=== PATIENT | female | born 1990 | race Caucasian/White ===

== ENCOUNTER → 2016-08-10 10:28 | Outpatient (CLI) | payer MEDICAID | END | disposition home or self-care (01) | LOC: D.US 10:28 | DX: R10.9 Unspecified abdominal pain (principal) ==

== ENCOUNTER 2016-09-29 19:30 | Emergency (ER) | payer MEDICAID | END 2016-09-30 00:28 | disposition home or self-care (01) | LOC: D.ER 19:30 | DX: O26.891 Other specified pregnancy related conditions, first trimester (principal); Z3A.00 Weeks of gestation of pregnancy not specified; K64.4 Residual hemorrhoidal skin tags; B37.3 Candidiasis of vulva and vagina; J45.909 Unspecified asthma, uncomplicated ==

== ENCOUNTER 2017-12-03 18:47 | Emergency (ER) | payer MEDICAID | END 2017-12-03 20:12 | disposition home or self-care (01) | LOC: D.ER 18:47 | DX: T63.461A Toxic effect of venom of wasps, accidental (unintentional), initial encounter (principal); Y92.9 Unspecified place or not applicable; L03.012 Cellulitis of left finger ==

== ENCOUNTER → 2018-05-05 10:23 | Outpatient (CLI) | payer MEDICAID | END | disposition home or self-care (01) | LOC: D.CT 10:23 | DX: J32.8 Other chronic sinusitis (principal) ==

== ENCOUNTER 2018-08-09 07:28 | Day surgery (SDC) | payer MEDICAID ==
[~2018-08-09] VITALS: Ht 162.6 cm; Wt 136.4 kg
[2018-08-09 07:47] LABS: HEMATOCRIT 37.9 % (36.0-48.0); HEMOGLOBIN 12.5 g/dL (12-16); MCV 78.8 fL (80.0-100.0); MEAN PLATELET VOLUME 9.3 fL (7.4-10.4); RBC 4.81 10x6/uL (4.00-5.40); WBC 6.2 10x3/uL (4.8-10.8)
[2018-08-09 08:13] LABS: HCG SERUM NEGATIVE (NEGATIVE)
[2018-08-09] MEDS ORDERED: CELEXA20 MG PO (08:37)
[2018-08-09] MEDS ORDERED: ZANTAC300 MG PO (08:37)
[2018-08-09] MEDS ORDERED: TOPAMAX50 MG PO (08:38)
[2018-08-09] MEDS ORDERED: BREO ELLIPTA 11 EACH INH (08:39)
[2018-08-09] MEDS ORDERED: PROAIR (08:40)
[2018-08-09 08:44] VITALS: BP 118/71; Ht 162.6 cm; Wt 136.4 kg
--- NOTE | 2018-08-09 13:50 | OP ---
PATIENT NAME: JOSIAH MONTES MEDICAL RECORD: [id number] :88 LOCATION:[facility] ADMISSION DATE: SURGEON: STEWART LEWIS DO DATE OF OPERATION: 08/09/2018 PROCEDURE: Colonoscopy with polypectomy. INDICATIONS FOR PROCEDURE: Family history positive for colon cancer in the patient's mother diagnosed at age 45 as well as periumbilical abdominal pain. SCOPE: Olympus video pediatric colonoscope. MEDICATIONS: Propofol 400 mg IV per anesthesia. WITHDRAWAL TIME: 7 minutes. ESTIMATED BLOOD LOSS: Minimal. COMPLICATIONS: None. FINDINGS AND DESCRIPTION OF PROCEDURE: Informed consent was given. The patient was made comfortable with the above medication. After reaching an adequate level of sedation by slow IV push, the patient was placed on her left side. A digital rectal examination was performed and it was normal. The endoscope was then advanced under direct visualization through the rectum to the cecum, confirmed by the presence of the appendiceal orifice and ileocecal valve. The endoscope was slowly withdrawn and the mucosa was carefully examined. There were 2 polyps located on today's examination. The first was in the ascending colon. It was benign appearing sessile polyp, which measured approximately 3-4 mm in diameter. It was removed using hot forceps in one piece and completely retrieved. A second polyp was a benign appearing sessile polyp located in the transverse colon, that was measured approximately 4-5 mm in diameter. It was removed using hot forceps and completely retrieved. Retroflexion was performed in the rectum with visualization of a normal rectal wall. There were no other findings on this examination. The endoscope was withdrawn from the patient. The patient tolerated the procedure well and there were no complications. IMPRESSION: 1. Two polyps as described above, removed using hot forceps. 2. Otherwise, normal colonoscopy. PLAN AND RECOMMENDATIONS: 1. Discharge home when recovery parameters are met. 2. Follow up biopsy specimen results. 3. Continue current diet. 4. Continue current medications. 5. Recall colonoscopy in 3-5 years based on the polyps that were removed today as well as the patient's strong family history of colon cancer. TRANSINT:[id number] Voice Confirmation ID: [id number] DOCUMENT ID: [id number] OPERATIVE REPORT [id number] JOSIAH MONTES STEWART LEWIS DO at 1350 CC: [id number] DICTATION DATE: 08/09/18 1016 STONE SPREADER OPERATOR: 08/09/18 1059 [facility] 08/09/18 [place] [id number] [place] [id number]
== END 2018-08-09 11:05 | disposition home or self-care (01) ==
LOC: D.OPS 07:28
PROVIDERS: Anesthesiology
DX: K63.5 Polyp of colon (principal); D12.2 Benign neoplasm of ascending colon; Z80.0 Family history of malignant neoplasm of digestive organs; J45.909 Unspecified asthma, uncomplicated; Z87.891 Personal history of nicotine dependence; K21.9 Gastro-esophageal reflux disease without esophagitis; E66.01 Morbid (severe) obesity due to excess calories; Z68.43 Body mass index [BMI] 50.0-59.9, adult; Z88.5 Allergy status to narcotic agent; Z79.899 Other long term (current) drug therapy; Z01.812 Encounter for preprocedural laboratory examination

== ENCOUNTER 2018-08-28 09:37 | Day surgery (SDC) | payer MEDICAID ==
[~2018-08-28] VITALS: Ht 162.6 cm; Wt 135.5 kg
[~2018-08-28 09:37] MED LIST: BREO ELLIPTA 11 EACH INH; CELEXA20 MG PO; PROAIR; TOPAMAX50 MG PO; ZANTAC300 MG PO
[2018-08-28 10:24] LABS: BASOPHILS 0.2 % (0-2); EOSINOPHILS 3.2 % (0-7); HCG SERUM NEGATIVE (NEGATIVE); HEMATOCRIT 36.6 % (36.0-48.0); HEMOGLOBIN 12.1 g/dL (12-16); IMMATURE GRANULOCYTES 0.2 % (0-5); LYMPHOCYTES 32.7 % (15-50); MCH 25.8 pg (26.0-34.0); MCHC 33.1 g/dL (31.0-37.0); MEAN PLATELET VOLUME 9.8 fL (7.4-10.4); MONOCYTES 5.8 % (2-11); NEUTROPHILS 57.9 % (40-80); PLATELET COUNT 245 10x3/uL (130-400); RBC 4.69 10x6/uL (4.00-5.40); RDW 13.5 % (11.5-14.5); WBC 6.2 10x3/uL (4.8-10.8)
[2018-08-28 11:18] VITALS: BP 115/66; Ht 162.6 cm; Wt 135.5 kg
[2018-08-28 11:43] LABS: HCG URINE NEGATIVE (NEGATIVE)
--- NOTE | 2018-08-28 13:38 | NUR ---
1230-RECD TO ROOM 1245-DR LEWIS IN TO REPORT FINDINGS 1300-IV D/C AND DRESSED 1315-DISCHARGE INSTRUCTIONS REVIEWED AND D/C VIA WHEELCHAIR WITH FAMILY.
--- NOTE | 2018-08-30 09:41 | OP ---
PATIENT NAME: JOSIAH MONTES MEDICAL RECORD: [id number] :88 LOCATION:[facility] ADMISSION DATE: SURGEON: STEWART LEWIS DO DATE OF OPERATION: 08/28/2018 PROCEDURE: EGD with biopsies. INDICATIONS FOR PROCEDURE: Heartburn, nausea, periumbilical abdominal pain, and intermittent melena. SCOPE: Olympus video gastroscope. MEDICATIONS: Propofol 250 mg IV per anesthesia. ESTIMATED BLOOD LOSS: Minimal. COMPLICATIONS: None. FINDINGS: Informed consent was given. The patient was made comfortable with the above medication. After reaching an adequate level of sedation by slow IV push, the patient was placed on her left side. The endoscope was advanced under direct visualization through the mouth to the second and third portions of the duodenum. The upper, middle, and lower thirds of the esophagus appeared normal. Random cold forceps biopsies were taken from the midesophagus to rule out the presence of eosinophils. At the GE junction, there were mild changes consistent with LA class C, reflux-induced esophagitis. There were no ulcers or erosions present. The endoscope was advanced beyond the GE junction into the stomach and retroflexed to view the cardia, which appeared normal. The mucosa of the stomach appeared normal in its entirety. Random cold forceps biopsies were taken to submit for histopathology and to rule out the presence of H. pylori. The endoscope was advanced beyond the pylorus into the duodenum, which appeared normal down to the third portion. The endoscope was withdrawn from the patient. The patient tolerated the procedure well and there were no complications. IMPRESSION: 1. LA class C, reflux-induced esophagitis. 2. Otherwise, normal upper endoscopy with biopsies taken from midesophagus and stomach. PLAN AND RECOMMENDATIONS: 1. Discharge home when recovery parameters are met. 2. Followup biopsy specimen results. 3. GERD diet and reflux precautions. 4. Trial of omeprazole 40 mg daily times 60 days. 5. Gastric emptying scan and right upper quadrant ultrasound regarding nausea and abdominal pain. 6. Consider PIPIDA scan pending results of above studies. 7. Follow up in GI clinic in approximately 3-4 weeks. TRANSINT:[id number] Voice Confirmation ID: [id number] DOCUMENT ID: [id number] OPERATIVE REPORT [id number] JOSIAH MONTES STEWART LEWIS DO at 0941 CC: [id number] DICTATION DATE: 08/28/18 1221 MATCHER: 08/28/18 1459 [facility] 08/28/18 [facility] [address] [place] [address]
== END 2018-08-28 13:15 | disposition home or self-care (01) ==
LOC: D.OPS 09:37
PROVIDERS: Internal Medicine Gastroenterology
DX: K21.0 Gastro-esophageal reflux disease with esophagitis (principal); K29.50 Unspecified chronic gastritis without bleeding; Z01.812 Encounter for preprocedural laboratory examination

== ENCOUNTER → 2018-09-01 10:18 | Outpatient (CLI) | payer MEDICAID | END | disposition home or self-care (01) | LOC: D.US 10:18 → D.NM 11:30 | DX: R11.0 Nausea (principal); R10.9 Unspecified abdominal pain ==

== ENCOUNTER → 2018-09-20 09:08 | Outpatient (CLI) | payer MEDICAID ==
[2018-09-20 09:47] LABS: ALBUMIN 3.7 g/dL (3.4-5.0); BILIRUBIN - DIRECT 0.13 mg/dL (0.00-0.30); BILIRUBIN - INDIRECT 0.41 mg/dL (0.00-1.00); BILIRUBIN - TOTAL 0.54 mg/dL (0.2-1.3)
== END | disposition home or self-care (01) ==
LOC: D.LAB 08:00 → D.NM 09:30
PROVIDERS: ATTEND Internal Medicine Gastroenterology
DX: R11.0 Nausea (principal)

== ENCOUNTER 2019-12-10 05:38 | Day surgery (SDC) | payer MEDICAID ==
[2019-12-06 11:16] LABS: BASOPHILS 0.2 % (0-2); EOSINOPHILS 3.3 % (0-7); HEMATOCRIT 38.9 % (36.0-48.0); HEMOGLOBIN 12.3 g/dL (12-16); IMMATURE GRANULOCYTES 0.1 % (0-5); LYMPHOCYTES 33.6 % (15-50); MCH 25.6 pg (26.0-34.0); MCHC 31.6 g/dL (31.0-37.0); MCV 80.9 fL (80.0-100.0); MEAN PLATELET VOLUME 9.3 fL (7.4-10.4); MONOCYTES 5.5 % (2-11); NEUTROPHILS 57.3 % (40-80); PLATELET COUNT 281 10x3/uL (130-400); RBC 4.81 10x6/uL (4.00-5.40); RDW 13.7 % (11.5-14.5); WBC 8.1 10x3/uL (4.8-10.8)
[2019-12-06 11:28] LABS: CALC OSMOLALITY 274 mosm/kg (275-300); CALCIUM 8.8 mg/dL (8.5-10.1); CARBON DIOXIDE 28.6 mmol/L (21.0-32.0); CHLORIDE - SERUM 103 mmol/L (98-107); CREATININE - SERUM 0.8 mg/dL (0.6-1.3); GLUCOSE 90 mg/dL (74-106); POTASSIUM - SERUM 3.9 mmol/L (3.5-5.1); SODIUM 138 mmol/L (136-145); UREA NITROGEN 9 mg/dL (7-18); eGFR NON AFRICAN AMERICAN 89 mL/min (90-120)
[2019-12-06 11:30] LABS: UDS - AMPHET NEGATIVE QUAL (NEGATIVE); UDS - BARB NEGATIVE QUAL (NEGATIVE); UDS - BENZO NEGATIVE QUAL (NEGATIVE); UDS - COCAINE NEGATIVE QUAL (NEGATIVE); UDS - OPIATE NEGATIVE QUAL (NEGATIVE); UDS - PCP NEGATIVE QUAL (NEGATIVE); UDS - THC POSITIVE QUAL (NEGATIVE)
[~2019-12-10] VITALS: Ht 162.6 cm; Wt 131.8 kg
--- NOTE | ~2019-12-10 | OP ---
PATIENT NAME: JOSIAH MONTES MEDICAL RECORD: [id number] :88 LOCATION:D[facility] ADMISSION DATE: SURGEON: BORA GUERRIER MD DATE OF OPERATION: 12/10/2019 PREOPERATIVE DIAGNOSES: 1. Abnormal uterine bleeding. 2. Dysmenorrhea. 3. Implantable contraception. POSTOPERATIVE DIAGNOSES: 1. Abnormal uterine bleeding. 2. Dysmenorrhea. 3. Implantable contraception. PROCEDURE PERFORMED: 1. Diagnostic laparoscopy. 2. Total laparoscopic hysterectomy. 3. Bilateral salpingectomy. 4. Left oophorectomy. 5. Removal of Nexplanon device. SURGEON: Bora Guerrier MD ANESTHESIOLOGIST: Dr. Mir. Francisco CR. ANESTHETIC: General. FINDINGS: Uterus, tubes, and ovaries appear unremarkable. The abdominal anatomy that was visualized is also unremarkable. The implantable contraception device is found on the medial aspect of the left arm superficial 6-7 cm above the olecranon. SPECIMENS REMOVED: 1. Uterus. 2. Bilateral tubes. 3. Left ovary. 4. Nexplanon device. SPECIMEN DISPOSITION: Pathology. ESTIMATED BLOOD LOSS: Minimal. FLUIDS: 1500 cc lactated Ringer's. URINE OUTPUT: 1375 cc. COMPLICATIONS: None. DRAINS: Hendrickson to gravity. INDICATIONS: The patient is a 29-year-old female with heavy irregular bleeding and painful periods. The patient has tried conservative therapy without relief of symptoms. The patient desires definitive treatment. Risks, benefits as well as limitations to this procedure have been discussed. OPERATIVE REPORT [id number] JOSIAH MONTES DESCRIPTION OF PROCEDURE: After informed consent was assured, the patient was taken to the operating room where anesthetic was obtained without difficulty. The patient was placed in [facility] and uterine manipulator placed. Incision was made at the umbilicus to accommodate a 5-mm trocar. Accessory trocars were now placed in the lower abdomen. With the patient in steep Trendelenburg, the bowel swept free of the pelvis. Dissection begins on the right side underneath the right tube. The tissues of the mesosalpinx were compressed, coagulated, and . The dissection was carried out underneath the tube and it is removed at its attachment to the cornual region and taken out of the pelvis. Dissection now begins across the uteroovarian and round ligaments. The anterior leaf of the broad ligament was opened and the bladder flap developed to the midline. Posteriorly, the tissues are dissected free and the vascular bundle, which is now compressed, coagulated, and at the level of the internal os. Attention now directed to the contralateral side. Again, the adnexa is elevated this time from a grasper from the right side. The Thunderbeat coagulation cutter was now used to compress, coagulate, and separate the infundibulopelvic ligament at the left side. Dissection carried out underneath the left ovary and tube across the round ligament and the anterior leaf of the broad ligament was now opened fully. The bladder flap was now fully developed assisted by use of a laparoscopic peanut. The vessels of the left side were skeletonized, compressed, coagulated, and at the level of the internal os. Dissection of the cervix from its attachments to the vaginal vault that begins at the 12 o'clock position and concluded at the 6 o'clock from the left and is concluded from the 12-6 o'clock moving in a clockwise fashion from the right lower quadrant. The specimen was now pulled into the vaginal vault maintaining pneumoperitoneum. An 0 Stratafix PDS is placed into the pelvis and using a laparoscopic suture technique, the cuff is closed in a running fashion moving from left to right, incorporating the uterosacral ligaments into the close. The stitch is cut short. Pelvis was irrigated and irrigant removed. Eric was placed. The patient now has pneumoperitoneum released as the accessory trocars were removed. Primary trocar was now removed. All sites were closed with a subcuticular stitch and Dermabond applied. Sponge, lap, needle counts were correct times. Specimens were removed from the vagina and sent to pathology. TRANSINT:[id number] Voice Confirmation ID: [id number] DOCUMENT ID: [id number] BORA GUERRIER MD CC: [id number] DICTATION DATE: 12/18/19 1640 TNT LINE SUPERVISOR: 12/19/19 0209 [facility] 12/10/19 [place] [id number] [place] [address]
[~2019-12-10 05:38] MED LIST changes: +CYMBALTA30 MG PO; +OMEPRAZOLE40 MG PO
[2019-12-10] MEDS ORDERED: CLARITIN 10 MG10 MG PO (06:07)
[2019-12-10 06:13] VITALS: BP 107/56; BMI 50.2
--- NOTE | 2019-12-10 06:22 | NUR ---
PATIENT IN OUTPATIENT, HISTORY OF SUICIDE ATTEMPT IN HER LIFETIME. PATIENT IS NOT CURRENTLY SUICIDIAL, AT BEDSIDE. 0-290 NUMBER GIVEN FOR FUTURE REFERENCE
[2019-12-10 06:28] LABS: HCG URINE NEGATIVE (NEGATIVE)
--- NOTE | 2019-12-10 10:16 | NUR ---
RECEIVED PT FROM VIA BED TO ROOM 1274. BED LOCKED AND PLACED IN LOW POSITION. PT AWAKE. AAO X 3. VSS. HRRR WITHOUT AUDIBLE MURMUR. BBS CLEAR. BS HYPOACTIVE. ABDOMEN SOFT/NON--DISTENDED. 3 LAP INCISIONS NOTED WITH DERMABOND. NO REDNESS, SWELLING OR DRAINAGE NOTED. SMALL INCISION NOTED TO INNER AREA OF LEFT ARM. DERMABOND NOTED TO INCISION. PT STATES HAD NEXPLANON REMOVED ALSO. PT STATES WAS FOR CONTROL. NO VAGINAL DISCHARGE NOTED. NEG HOMANS' SIGN. PPP. MILD NON-PITTING EDEMA NOTED TO BLE. SCDS ON BLE. PUMP ON. APODACA TO GRAVITY DRAINING CLEAR, YELLOW URINE. PIV SITE CLEAR TO RIGHT HAND(20 GAUGE). LR INFUSING AT 125 ML/HR. PT STATES C/O INCISIONAL PAIN OF "8" ON 0-10 PAIN SCALE. SR UP X 2. CALL LIGHT IN REACH. PT ORIENTED TO ROOM, BED, AND CALL LIGHT. SO AT BEDSIDE.
[2019-12-10 10:19] VITALS: BP 130/72
--- NOTE | 2019-12-10 10:25 | NUR ---
ICE PACK TO ABDOMINAL INCISIONS.
[2019-12-10 10:32] VITALS: BP 136/69
--- NOTE | 2019-12-10 10:33 | NUR ---
TORADOL 30 MG GIVEN SIVP OVER 2 MINUTES. PT INSTRUCTED ON MED. VERBALIZES UNDERSTANDING.
[2019-12-10 10:35] VITALS: BP 130/72; Ht 162.6 cm; Wt 131.8 kg
--- NOTE | 2019-12-10 10:46 | NUR ---
PT INSTRUCTED ON TCDB AND INCENTIVE SPIROMETER. PT DEMONSTRATES UNDERSTANDING. SURGICAL SPLINT PILLOW PROVIDED AND PT PULLS 2000 ON IS. ICE CHIPS PROVIDED TO PT. PT DENIES NAUSEA.
[2019-12-10 10:47] VITALS: BP 111/61
[2019-12-10 11:02] VITALS: BP 115/68
--- NOTE | 2019-12-10 11:05 | NUR ---
PT STATES FEELING SOME BETTER. TOLERATES ICE CHIPS. APODACA CATHETER DC'D WITH 950 ML OF CLEAR, YELLOW URINE NOTED IN BAG. PT INSTRUCTED TO NOTIFY NURSE OF NEED TO VOID FOR ASSISTANCE TO BR. PT VERBALIZES UNDERSTANDING. PT STATES DESIRE TO DC HOME TODAY. STATES "I HAVE TOO MANY KIDS AT HOME". 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 PT STATES "MY WILL BE THE ONE TAKING CARE OF THEM". STATES "I WILL REST". PT PROVIDED ICE WATER AT REQUEST.
--- NOTE | 2019-12-10 11:50 | NUR ---
PT OOB AND AMB TO BR. VOIDS 150 ML OF BLOOD-TINGED URINE. PERICARE DONE PER PT. PAD CHANGED WITH SMALL AMT OF SEROSANGUINOUS DRAINAGE NOTED. NO CLOTS NOTED. PT AMB BACK TO BED. PT ESCOBAR WELL.
--- NOTE | 2019-12-10 11:52 | NUR ---
DR GUERRIER IN UNIT- SCRIPTS LEFT AT DESK- STATES WANTS TO SEE IN CLINIC IN 2 WEEKS.
--- NOTE | 2019-12-10 12:30 | NUR ---
PT SITTING UP IN BED. CONSUMING FOOD BROUGHT IN BY FAMILY. STATES TOLERATING WELL. STATES VOIDED SECOND TIME-300 ML NOTED IN SPECIPAN. PT DENIES NEEDS OR C/O. STATES DESIRE TO DC HOME.
--- NOTE | 2019-12-10 13:00 | NUR ---
rings call light- questioning when can get dressed. tolerating reg diet- ate 60%. iv in rt arm removed- cath tip intact. pt up to dress.
[2019-12-10] MEDS ORDERED: MOBIC7.5 MG PO (13:08)
[2019-12-10] MEDS ORDERED: HYDROCODON-ACE1 EAC2 PO (13:08)
[2019-12-10] MEDS ORDERED: NEURONTIN 300300 MG PO (13:09)
--- NOTE | 2019-12-10 13:19 | NUR ---
NEURONTIN 300 MG AND NORCO 10/325 GIVEN PO ORDERED. PT INSTRUCTED ON MEDS. VERBALIZES UNDERSTANDING.
--- NOTE | 2019-12-10 13:25 | NUR ---
DISCHARGE INSTRUCTIONS GIVEN TO PT. PT VERBALIZES UNDERSTANDING OF ALL INSTRUCTIONS. COPIES GIVEN TO PT. PT GIVEN RX FOR NORCO, MOBIC AND NEURONTIN.
--- NOTE | 2019-12-10 13:30 | NUR ---
PT READY FOR DISCHARGE. DISCHARGED IN STABLE CONDITION VIA WHEELCHAIR PER GABRIEL QUAN TO PRIVATE VEHICLE.
== END 2019-12-10 13:30 | disposition home or self-care (01) ==
LOC: D.OPS 05:38 → D.PAN 07:00 → D.OPS 09:00 → D.LD 10:18 → D.OPS 13:30
PROVIDERS: ATTEND Obstetrics & Gynecology
DX: N93.9 Abnormal uterine and vaginal bleeding, unspecified (principal); N94.5 Secondary dysmenorrhea; F17.200 Nicotine dependence, unspecified, uncomplicated; K21.9 Gastro-esophageal reflux disease without esophagitis; E66.01 Morbid (severe) obesity due to excess calories; Z68.41 Body mass index [BMI] 40.0-44.9, adult; Z30.432 Encounter for removal of intrauterine contraceptive device; J45.909 Unspecified asthma, uncomplicated